=== PATIENT | male | born 1990 | race Caucasian/White ===

== ENCOUNTER 2017-05-15 18:36 | Emergency (ER) | payer SELFPAY ==
[~2017-05-15] VITALS: Ht 172.7 cm; Wt 98.0 kg
[2017-05-15 18:44] VITALS: Ht 172.7 cm; Wt 98.0 kg
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
[2017-05-15] MEDS ORDERED: HYDROCODONE/APAP (5/325) TAB PO ONE (21:30)
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
[2017-05-15 22:00] VITALS: BP 120/84; PULSE 70; RESP 16; TEMP 98
== END 2017-05-15 22:00 | disposition home or self-care (01) ==
LOC: FTE 18:36
DX: S39.92XA Unspecified injury of lower back, initial encounter (principal); V49.40XA Driver injured in collision with unspecified motor vehicles in traffic accident, initial encounter
CPT/HCPCS: 72100; 73562